=== PATIENT | female | born 1990 | race Caucasian/White ===

== ENCOUNTER 2019-10-29 15:35 | Emergency (ER) | payer SELFPAY ==
--- NOTE | 2019-10-29 16:50 | EDM.PDOC ---
ED HPI GENERAL MEDICAL PROBLEM - General Chief Complaint: Abdominal Pain Stated Complaint: ABDOMINAL PAIN Time Seen by Provider: 10/29/19 16:48 Source of Information: Reports: Patient History Limitations: Reports: No Limitations - History of Present Illness INITIAL COMMENTS - FREE TEXT/NARRATIVE: HISTORY AND PHYSICAL: History of present illness: Patient is a 29-year-old female presents to the ED with concern of vaginal bleeding in . Patient states that she took a test yesterday which was positive. She states her last period was 5-6 weeks ago but can not say for sure. She states she has been having bleeding for the past 4 hours. She states it is not enough bleeding that she needs a pad and notices it when she wipes. She states there is not any clots. She reports some lower abdominal pain and cramping. She is . Review of systems: As per history of present illness and below otherwise all systems reviewed and negative. Past medical history: As per history of present illness and as reviewed below otherwise noncontributory. Surgical history: As per history of present illness and as reviewed below otherwise noncontributory. Social history: No reported history of drug or alcohol abuse. Family history: As per history of present illness and as reviewed below otherwise noncontributory. Physical exam: General: Patient sitting comfortably in no acute distress and nontoxic appearing HEENT: Atraumatic, normocephalic, pupils reactive, negative for conjunctival pallor or scleral icterus, mucous membranes moist, throat clear, neck supple, nontender, trachea midline. No meningeal signs. Lungs: Clear to auscultation, breath sounds equal bilaterally, chest nontender. Heart: S1S2, regular, negative for clicks, rubs, or overt murmur. Abdomen: Soft, nondistended, nontender. Negative for masses or hepatosplenomegaly. Negative for costovertebral tenderness. No rigidity, rebound , guarding. Pelvis: Stable nontender. Genitourinary: Deferred. Rectal: Deferred. Extremities: Atraumatic, negative for cords or calf pain. Neurovascular unremarkable. Neuro: Awake, alert, oriented. Cranial nerves II through XII unremarkable. Cerebellum unremarkable. Motor and sensory unremarkable throughout. Exam nonfocal. Notes: Diagnostics: UA, hcg quant, ABO/Rh, OB US Therapeutics: none Prescriptions: Impression: Spontaneous Plan: Pelvic rest as instructed Follow up with adoption worker, call number provided to schedule an appointment Return to ED as needed as discussed Definitive disposition and diagnosis as appropriate pending reevaluation and review of above. Upper Abdomen Pain Score (Numeric/FACES): 7 - Related Data Allergies Allergy/AdvReac Type Severity Reaction Status Date / Time No Known Allergies Allergy Verified 10/29/19 16:50 Home Meds: Home Meds . [No Known Home Meds] 10/29/19 [History] ED ROS GENERAL - Review of Systems Review Of Systems: Comprehensive ROS is negative, except as noted in HPI. ED EXAM, RENAL/ - Physical Exam Exam: See Below (see dictation) Course - Vital Signs Last Recorded V/S: Last Vital Signs Temp 97.9 F 10/29/19 18:40 Pulse 73 10/29/19 18:40 Resp 18 10/29/19 18:40 BP 109/59 L 10/29/19 18:40 Pulse Ox 97 10/29/19 18:40 - Orders/Labs/Meds Labs: Laboratory Tests 10/29/19 10/29/19 10/29/19 Range/Units 16:51 16:51 16:52 HCG, Quant 18.0 mIU/mL Urine Color YELLOW Urine Appearance SLT CLOUDY Urine pH 6.0 (5.0-8.0) Ur Specific [place] 1.025 (1.001-1.035) Urine Protein NEGATIVE (NEGATIVE) mg/dL Urine Glucose (UA) NEGATIVE (NEGATIVE) mg/dL Urine Ketones NEGATIVE (NEGATIVE) mg/dL Urine Occult Blood LARGE H (NEGATIVE) Urine Nitrite NEGATIVE (NEGATIVE) Urine Bilirubin NEGATIVE (NEGATIVE) Urine Urobilinogen 0.2 (<2.0) EU/dL Ur Leukocyte Esterase NEGATIVE (NEGATIVE) Urine RBC 9-12 (0-2/HPF) Urine WBC 0-3 (0-5/HPF) Ur Epithelial Cells RARE (NONE-FEW) Urine Bacteria FEW (NEGATIVE) Urine HCG, Qual POSITIVE (NEGATIVE) Blood Type 10/29/19 Range/Units 16:52 HCG, Quant mIU/mL Urine Color Urine Appearance Urine pH (5.0-8.0) Ur Specific [place] (1.001-1.035) Urine Protein (NEGATIVE) mg/dL Urine Glucose (UA) (NEGATIVE) mg/dL Urine Ketones (NEGATIVE) mg/dL Urine Occult Blood (NEGATIVE) Urine Nitrite (NEGATIVE) Urine Bilirubin (NEGATIVE) Urine Urobilinogen (<2.0) EU/dL Ur Leukocyte Esterase (NEGATIVE) Urine RBC (0-2/HPF) Urine WBC (0-5/HPF) Ur Epithelial Cells (NONE-FEW) Urine Bacteria (NEGATIVE) Urine HCG, Qual (NEGATIVE) Blood Type O POSITIVE Departure - Departure Time of Disposition: 18:17 Disposition: Home, Self-Care 01 Condition: Good Clinical Impression: Threatened Clinical Impression: (Ruled Out): Spontaneous - Discharge Information Instructions: Miscarriage, [id number] Referrals: PCP,None [Primary Care Provider] - Forms: ED Department Discharge Additional Instructions: The following information is given to patients seen in the emergency department who are being discharged to home. This information is to outline your options for follow-up care. We provide all patients seen in our emergency department with a follow-up referral. The need for follow-up, as well as the timing and circumstances, are variable depending upon the specifics of your emergency department visit. If you don't have a primary care physician on staff, we will provide you with a referral. We always advise you to contact your personal physician following an emergency department visit to inform them of the circumstance of the visit and for follow-up with them and/or the need for any referrals to a consulting specialist. The emergency department will also refer you to a specialist when appropriate. This referral assures that you have the opportunity for follow-up care with a specialist. All of these measure are taken in an effort to provide you with optimal care, which includes your follow-up. Under all circumstances we always encourage you to contact your private physician who remains a resource for coordinating your care. When calling for follow-up care, please make the office aware that this follow-up is from your recent emergency room visit. If for any reason you are refused follow-up, please contact the [facility] Emergency Department at and asked to speak to the emergency department charge nurse. [facility] [address] [place] [id number] [facility] - [facility] [address] [place] [id number] Pelvic rest as instructed Follow up with adoption worker, call number provided to schedule an appointment Return to ED as needed as discussed Sepsis Event Note - Focused Exam Date Exam was Performed: 10/30/19 Time Exam was Performed: 16:32
--- NOTE | 2019-10-29 18:02 | US ---
INDICATION: Abdominal pain, vaginal bleeding. LMP 09/20/2019. TECHNIQUE: Ultrasound OB pelvis transvaginal. Real time nagel scale imaging of the pelvis was performed. COMPARISON: None FINDINGS: The uterus measures 7.2 x 4.1 x 5.4 cm. Endometrium measures 1.1 cm in thickness and is homogeneous. No evidence of intrauterine gestational sac. The right ovary measures 3.5 x 2 x 1.7 cm. Left ovary is not definitely identified. No adnexal masses. There is a trace amount of free fluid in the cul-de-sac, which appears simple. IMPRESSION: No evidence of intrauterine . No adnexal masses. In the setting of a positive test, differential considerations include early intrauterine , ectopic , spontaneous . Recommend close clinical follow-up with serial HCG and repeat ultrasound. Dictated by Jhoana Agosto MD @ 10/29/2019 6:00:01 PM Dictated by: Jhoana Agosto MD @ 10/29/2019 18:00:08 (Electronically Signed)
== END 2019-10-29 18:45 | disposition home or self-care (01) ==
LOC: MW.ED 15:35
DX: O20.0 Threatened abortion (principal)
CPT/HCPCS: 36415; 76817; 76817-26; 81001; 81025; 84702; 86900; 86901; 99283; 99284-25